=== PATIENT | female | born 1985 | race African-American/Black ===

== ENCOUNTER 2016-04-16 18:27 | Emergency (ER) | payer OTHER ==
[2016-04-16 18:44] VITALS: BP 122/69
== END 2016-04-16 20:29 | disposition left against medical advice (07) ==
LOC: ED 18:27
DX: K08.89 Other specified disorders of teeth and supporting structures (principal)

== ENCOUNTER 2016-05-30 07:23 | Emergency (ER) | payer OTHER ==
[2016-05-30 08:21] LABS: Hematocrit 37 % (35-47); Hemoglobin 12.4 g/dl (12.0-16.0); Mean Corpuscular HGB Conc 33 g/dl (31-36); Mean Corpuscular Hemoglobin 29 pg (27-31); Mean Corpuscular Volume 87 fL (80-97); Mean Platelet Volume 11 um3 (7.4-10.4); Red Blood Count 4.29 10^6/ul (4.0-5.4); Red Cell Distribution Width 14 % (10.5-15); White Blood Count 6.3 10^3/ul (3.5-10.8)
[2016-05-30 08:25] LABS: Comments Flag Yes
[2016-05-30 08:26] LABS: Add Diff/Slide Review? Slide Review Added
[2016-05-30 08:34] LABS: Calcium 8.9 mg/dL (8.6-10.3); EGFR African American 139.6 (>60); EGFR Non-African American 108.5 (>60); Globulin 3.2 g/dL (2-4); Total Bilirubin 0.5 mg/dL (0.2-1.0); Total Protein 7.2 g/dL (6.4-8.9)
[2016-05-30 08:37] LABS: Urine Bacteria Absent (Absent); Urine Bilirubin Negative (Negative); Urine Glucose Negative (Negative); Urine Nitrite Negative (Negative)
[2016-05-30 09:11] LABS: Potassium 4.5 mmol/L (3.5-5.0)
--- NOTE | 2016-05-30 11:43 | RAD ---
Indication: , vaginal bleeding. COMPARISON: There are no prior studies available for comparison. TECHNIQUE: Multiple real-time transvaginal images of the pelvis were obtained. FINDINGS: There is a small saclike structure present within the uterine cavity in the fundus of the uterus. There is a yolk sac present. No pole or heartbeat is seen. The mean sac diameter measures 0.5 cm corresponding to an estimated gestational age of 5 weeks 0 days. There is a relatively large fluid collection adjacent to the sac measuring 2.0 x 1.2 x 2.1 cm consistent with a subchorionic hemorrhage. There is a hypoechoic mass present in the fundal portion of the uterus toward the left side measuring 1.5 x 1.2 x 1.5 cm most consistent with a leiomyoma. The right ovary measured 3.1 x 3.0 x 2.4 cm. The left ovary measured 3.9 x 3.7 x 2.5 cm. There is vascular flow within both ovaries. There is a slightly complex cyst present within the left ovary measured 2.2 x 1.7 x 1.9 cm. No free intraperitoneal fluid is seen. IMPRESSION: 1. EARLY INTRAUTERINE WITH A RELATIVELY LARGE SUBCHORIONIC HEMATOMA. RECOMMEND A FOLLOW-UP PELVIC ULTRASOUND IN 1-2 WEEKS TIME TO ASSESS FOR VIABILITY. 2. SMALL UTERINE LEIOMYOMA. 3. SMALL COMPLEX LEFT OVARIAN CYST.
[2016-05-30 12:15] VITALS: BP 104/60
--- NOTE | 2016-05-30 13:55 | ED ---
Stevie, DoctorLisbeth, scribed for Eliezer Pollard MD on 05/30/16 at 0744 . GI/ HPI - HPI Summary HPI Summary: 30 year old female arrived to [facility] c/o vaginal bleeding and abdominal cramping beginning yesterday. She is 6 weeks as confirmed by a qualitative home test, and had her LMP on 04/22. She reports that the blood was a light pink color and similar to spotting; denies any painful/frequent urination. She denies any other medical problems. - History of Current Complaint Chief Complaint: EDVaginalBleeding Stated Complaint: 6WKS PREG/VAG BLEEDING Hx Obtained From: Patient Onset/Duration: Started Days Ago - last night Timing: Intermittent Severity: Moderate Current Severity: Moderate Vaginal Bleeding Description: Bright Red - "light pink" Pain Intensity: 7 Location of Pain: Diffuse - abdominal cramping Pain Characteristics: Cramping Associated Signs and Symptoms: Negative: Hematuria, Dysuria - Allergy/Home Medications Allergies/Adverse Reactions: Allergies Allergy/AdvReac Type Severity Reaction Status Date / Time No Known Allergies Allergy Verified 04/16/16 18:45 PMH/Surg Hx/FS Hx/Imm Hx Previously Healthy: Yes Infectious Disease History: No Infectious Disease History: Denies: Traveled Outside the [place] in Last 30 Days - Family History Known Family History: Positive: Hypertension Negative: Cardiac Disease - Social History Alcohol Use: None Substance Use Type: Reports: None Smoking Status (MU): Never Smoked Tobacco Review of Systems Positive: Abdominal Pain - cramping. Negative: Vomiting, Diarrhea, Nausea Positive: other - vaginal bleeding. Negative: hematuria, pain, urgency All Other Systems Reviewed And Are Negative: Yes Physical Exam Triage Information Reviewed: Yes Vital Signs On Initial Exam: Initial Vitals Temp Pulse Resp BP Pulse Ox 98.6 F 65 18 100/51 100 05/30/16 07:31 05/30/16 07:31 05/30/16 07:31 05/30/16 07:31 05/30/16 07:31 Vital Signs Reviewed: Yes Appearance: Positive: Well-Appearing, No Pain Distress Skin: Positive: Warm, Skin Color Reflects Adequate Perfusion, Dry Head/Face: Positive: Normal Head/Face Inspection Eyes: Positive: Normal ENT: Positive: Normal ENT inspection Neck: Positive: Supple, Nontender Respiratory/Lung Sounds: Positive: Clear to Auscultation, Breath Sounds Present Cardiovascular: Positive: RRR Abdomen Description: Positive: Nontender, Soft Bowel Sounds: Positive: Present Musculoskeletal: Positive: Normal Neurological: Positive: Normal Psychiatric: Positive: Normal, Affect/Mood Appropriate Diagnostics - Vital Signs Vital Signs Temp Pulse Resp BP Pulse Ox 05/30/16 07:31 98.6 F 65 18 100/51 100 - Laboratory Lab Results: Quantitative HC.0 mIU/mL Result Diagrams: 05/30/16 08:00 05/30/16 08:00 Lab Statement: Any lab studies that have been ordered have been reviewed, and results considered in the medical decision making process. - Ultrasound No standard instances Ultrasound Interpretation Completed By: Radiologist - IMPRESSION: 1. EARLY INTRAUTERINE WITH A RELATIVELY LARGE SUBCHORIONIC HEMATOMA. RECOMMEND A FOLLOW-UP PELVIC ULTRASOUND IN 1-2 WEEKS TIME TO ASSESS FOR VIABILITY. 2. SMALL UTERINE LEIOMYOMA. 3. SMALL COMPLEX LEFT OVARIAN CYST. GIGU Course/Dx - Course Course Of Treatment: Taj Parra presented with some mild vaginal bleeding in the context of a positive OTC test about 6 weeks after her LMP. She was stable with only mild cramping and her HCG was over 4000 so an U/s was obtained which showed an IUP with a subchorionic hemorrhage. - Diagnoses Provider Diagnoses: First trimester bleeding, Subchorionic hemorrhage Discharge - Discharge Plan Condition: Stable Disposition: HOME Patient Education Materials: First Trimester Vaginal Bleed (ED) Referrals: Arsen Aquino MD [Medical Doctor] - Additional Instructions: Follow up with Dr. Aquino ([employer]) on 06/02/2016. What is a subchorionic bleed? Subchorionic bleeding (also known as a subchorionic hematoma) is the accumulation of blood within the folds of the chorion (the outer membrane , next to the placenta) or between the uterus and the placenta itself. It can cause light to heavy spotting, but it may not. Most subchorionic bleeds resolve on their own, and women go on to have perfectly healthy pregnancies. * How common is it? * Around 1 percent of all pregnancies have a subchorionic bleed. Of those women who experience first-trimester bleeding, 20 percent are diagnosed with a subchorionic bleed as the cause of the spotting. * What are the symptoms? * Subchorionic hematomas can be hard to corn picker because they dont always result in noticeable symptoms, especially when theyre small. Spotting or bleeding may be a sign, often beginning in the first trimester. But many subchorionic bleeds are detected during a routine ultrasound, without there being any noticeable signs or symptoms. * Potential risks * Remember: The vast majority of subchorionic hematomas dissolve on their own. However in rare cases, a subchorionic bleed can cause the placenta to separate from the uterine wall, and it may be linked to an elevated risk of miscarriage and labor which is why it's so important to let your doctor know right away if you ever experience vaginal bleeding during . * Should you be concerned? * It's normal and healthy to worry when you see blood during . But know that subchorionic bleeding usually ends in a healthy and since you'll be checked with ultrasounds until the hematoma corrects itself, you'll get reassurrance each time you see your baby's heartbeat. * How it's diagnosed and treated * If you notice vaginal bleeding during any point of your , call your practitioner. He or she will order an ultrasound; depending on how large the subchorionic hematoma is and where its located, as well as on your practitioner s preferences, you may be put on activity restriction (also known as bed rest) and asked to avoid sexual intercourse until the hematoma dissolves and disappears. * Updated 12/25/14 The documentation as recorded by the Doctor hart Tahera accurately reflects the service I personally performed and the decisions made by me, Eliezer Pollard MD.
== END 2016-05-30 12:45 | disposition home or self-care (01) ==
LOC: ED 07:23
DX: O20.8 Other hemorrhage in early pregnancy (principal); Z3A.01 Less than 8 weeks gestation of pregnancy; O34.11 Maternal care for benign tumor of corpus uteri, first trimester; O34.81 Maternal care for other abnormalities of pelvic organs, first trimester; N83.202 Unspecified ovarian cyst, left side
CPT/HCPCS: 36415; 76817; 80053; 81003; 81015; 84702; 85025; 86850; 86900; 86901; 87086; 99282

== ENCOUNTER 2016-05-30 15:46 | Emergency (ER) | payer OTHER ==
[2016-05-30 17:44] VITALS: BP 124/96
--- NOTE | 2016-06-20 15:33 | ED ---
GI/ HPI - HPI Summary HPI Summary: BIBA. Pt seen earlier today w/ vaginal bleeding during . U/S revealed subchorionic hemorrhage and pt was provided w/ education about this condition, including f/u instructions. Her vaginal bleeding and abdominal cramping began yesterday. She is 6 weeks as confirmed by a qualitative home test, and had her LMP on 04/22. She reports that the blood she was passing earlier today was a light pink color and similar to spotting - now she is having more active bleeding w/ cramping, like a regular period. Denies fever, chills, N/V/D, dysuria, back pain, chest pain, SOB. She denies any other medical problems. She is upset she may be miscarrying. - History of Current Complaint Chief Complaint: EDOBProblems Time Seen by Provider: 05/30/16 15:54 Stated Complaint: VAG BLEEDING Hx Obtained From: Patient, Family/Street Inspector - family Pain Intensity: 0 - Allergy/Home Medications Allergies/Adverse Reactions: Allergies Allergy/AdvReac Type Severity Reaction Status Date / Time No Known Allergies Allergy Verified 06/07/16 16:50 PMH/Surg Hx/FS Hx/Imm Hx Previously Healthy: Yes Endocrine/Hematology History: Denies: Hx Anticoagulant Therapy, Hx Blood Disorders, Hx Unexplained Bleeding , Hx Coagulopothy Infectious Disease History: No Infectious Disease History: Denies: Traveled Outside the [place] in Last 30 Days - Family History Known Family History: Positive: Hypertension Negative: Cardiac Disease - Social History Lives: With Family Alcohol Use: None Hx Substance Use: No Substance Use Type: Reports: None Hx Tobacco Use: No Smoking Status (MU): Never Smoked Tobacco Review of Systems Constitutional: Negative Negative: Blurred Vision Negative: Chest Pain Negative: Shortness Of Breath Gastrointestinal: Other - see HPI Positive: see HPI Musculoskeletal: Negative Skin: Negative Neurological: Negative Positive: Anxious All Other Systems Reviewed And Are Negative: Yes Physical Exam Triage Information Reviewed: Yes Vital Signs On Initial Exam: Initial Vitals Temp Pulse Resp BP Pulse Ox 100.2 F 66 18 117/62 100 05/30/16 15:57 05/30/16 15:57 05/30/16 15:57 05/30/16 15:57 05/30/16 15:57 Vital Signs Reviewed: Yes Appearance: Positive: Well-Appearing - emotionally upset, tearful - no signs of physical pain/distress, No Pain Distress, Well-Nourished Skin: Positive: Warm, Dry - no ecchymosis Head/Face: Positive: Normal Head/Face Inspection Eyes: Positive: Normal, EOMI, Conjunctiva Clear ENT: Positive: Hearing grossly normal, Pharynx normal - mucosa moist Neck: Positive: Supple Respiratory/Lung Sounds: Positive: Clear to Auscultation, Breath Sounds Present Cardiovascular: Positive: Normal, RRR, Pulses are Symmetrical in both Upper and Lower Extremities, S1, S2. Negative: Murmur, Rub, Leg Edema Left, Leg Edema Right Abdomen Description: Positive: Nontender, Soft. Negative: CVA Tenderness (R), CVA Tenderness (L) Bowel Sounds: Positive: Present Pelvic Exam: Positive: other - vaginal canal w/ scant dark red blood Musculoskeletal: Positive: Normal, Strength/ROM Intact Neurological: Positive: Normal, Sensory/Motor Intact, Alert, Oriented to Person Place, Time, CN Intact II-III Psychiatric: Positive: Other - tearful Diagnostics - Vital Signs Vital Signs Temp Pulse Resp BP Pulse Ox 05/30/16 17:42 99.6 F 67 20 124/96 05/30/16 15:57 100.2 F 66 18 117/62 100 - Laboratory Lab Statement: Any lab studies that have been ordered have been reviewed, and results considered in the medical decision making process. GIGU Course/Dx - Course Course Of Treatment: Based on HPI and PE from now and earlier today, opted to avoid additional testing given the fact this is most likely a threatened w/ more steady vaginal bleeding in the face of a large subchorionic hemorrhage on U/S today. No s/sx of infection, uncontrolled pain, etc. Provided education and supportive care during sx. Advised f/u as directed by Dr. Pollard earlier in the day - Dr. Pollard has also assessed her and no rhogam necessary. Reviewed danger s/sx of when to return to ED. Pt and family voice understanding. - Diagnoses Provider Diagnoses: Threatened in first trimester, Subchorionic hematoma in first trimester Discharge - Discharge Plan Condition: Stable Disposition: HOME Patient Education Materials: Subchorionic Hemorrhage (ED) Forms: *Work Release Referrals: No Primary Care Phys,NOPCP [Primary Care Provider] - Additional Instructions: You were diagnosed with a subchorionic hemorrhage earlier today. Given your current symptoms, you may be having a miscarriage. It is advised that you rest and repeat your test in 48 hours (Thursday). A lab order was provided for you today - bring this to the lab on Thursday - the lab is in the basement. Your results will be called back to you later in the day. If you do not hear back by Thursday, call for results. Follow-up with OBGYN as directed earlier today - call Thursday to schedule an appointment. *If you develop a hard abdomen, fever, vomiting, back pain, heavy bleeding ( saturating a pad every hour for 12 or more consecutive hours) return to ED.
== END 2016-05-30 17:42 | disposition home or self-care (01) ==
LOC: ED 15:46
DX: O20.0 Threatened abortion (principal); Z3A.01 Less than 8 weeks gestation of pregnancy; N93.9 Abnormal uterine and vaginal bleeding, unspecified
CPT/HCPCS: 99282

== ENCOUNTER 2016-06-02 11:00 | Emergency (ER) | payer OTHER ==
[2016-06-02 11:13] VITALS: BP 118/53
--- NOTE | 2016-06-02 14:18 | RAD ---
Indication: , vaginal bleeding. COMPARISON: Comparison is made with a prior pelvic ultrasound from May 30, 2016. TECHNIQUE: Multiple real-time transvaginal images of the pelvis were obtained. FINDINGS: There is a sac in the fundal portion of the uterine cavity. No Pole or heartbeat is visualized although a yolk sac is seen. The mean sac diameter measures 0.66 cm corresponding to an estimated gestational age of 5 weeks 2 days. In addition there is a subchorionic collection measuring 1.3 x 0.8 x 1.0 cm in size. There is a small fibroid present within the fundal portion of the uterus toward the left side measuring 1.2 x 1.2 x 1.6 cm. The right ovary measured 3.3 x 2.0 x 1.8 cm. The left ovary measured 3.6 x 2.4 x 2.4 cm. There is vascular flow within both ovaries. There is a complex left ovarian cyst measuring 1.5 x 1.2 x 1.7 cm. No free intraperitoneal fluid is seen. IMPRESSION: 1. EARLY INTRAUTERINE WITH A RELATIVELY LARGE SUBCHORIONIC HEMATOMA, UNCHANGED. RECOMMEND A FOLLOW-UP PELVIC ULTRASOUND IN 1-2 WEEKS TIME TO ASSESS FOR VIABILITY. 2. SMALL COMPLEX LEFT OVARIAN CYST. 3. SMALL UTERINE LEIOMYOMA.
[2016-06-02 19:03] LABS: Hematocrit 39 % (35-47); Hemoglobin 12.7 g/dl (12.0-16.0); Mean Corpuscular HGB Conc 33 g/dl (31-36); Mean Corpuscular Hemoglobin 28 pg (27-31); Mean Corpuscular Volume 87 fL (80-97); Mean Platelet Volume 11 um3 (7.4-10.4); Red Blood Count 4.48 10^6/ul (4.0-5.4); Red Cell Distribution Width 14 % (10.5-15); White Blood Count 7.5 10^3/ul (3.5-10.8)
[2016-06-02 19:04] LABS: Add Diff/Slide Review? Slide Review Added; Comments Flag Yes
--- NOTE | 2016-06-22 20:44 | UC ---
jonathan Hubbard Timothy, scribed for Tiffanie Gould DO on 06/02/16 at 1234 . Complaint Female HPI - HPI Summary HPI Summary: Taj Parra is a 30 yo female presenting to [facility] with vaginal bleeding, requiring a pad. She has used 4-5 pantyliners per day in the past 2 days. She has had abd pain and cramping since 05/30/16. She is not in any pain right now. She is 6 weeks with a positive test, her LNMP was 04/22/16. She appeared to [facility] on 05/30/16, and they told her that she was bleeding from the placenta. She appeared for blood work yesterday, and was told that she was not miscarrying. She states she returned home and the bleeding increased. She states the amount of bleeding increases with movement. She states she had some dizziness last night before bed. She denies any other Sx. . Pt and family state that they are here for a sonnogram, as [facility] was unable to schedule one for them until next week. She denies any pertinent MHx. - History Of Current Complaint Chief Complaint: UCGU Stated Complaint: BLEEDING 6 WEEKS Time Seen by Provider: 06/02/16 12:26 Hx Obtained From: Patient Hx Last Menstrual Period: 04/22/16 ?: Yes Onset/Duration: Sudden Onset, Lasting Hours, Still Present Timing: Constant, Lasting Hours Severity Initially: Moderate Severity Currently: Moderate Pain Intensity: 0 Pain Scale Used: 0-10 Numeric Character: Cramping Aggravating Factor(s): Movement Alleviating Factor(s): Nothing Associated Signs And Symptoms: Positive: Vaginal Bleeding/Discharge - Allergies/Home Medications Allergies/Adverse Reactions: Allergies Allergy/AdvReac Type Severity Reaction Status Date / Time No Known Allergies Allergy Verified 06/07/16 16:50 Home Medications: Home Medications NK [No Home Medications Reported] 06/02/16 [History Confirmed 06/07/16] PMH/Surg Hx/FS Hx/Imm Hx Previously Healthy: Yes Cardiovascular History Of: Denies: Cardiac Disorders - Surgical History Surgical History: None - Family History Known Family History: Positive: Hypertension Negative: Cardiac Disease, Diabetes - Social History Occupation: Employed Full-time Lives: With Family Alcohol Use: None Substance Use Type: None Smoking Status (MU): Never Smoked Tobacco Review of Systems Constitutional: Negative Skin: Negative Eyes: Negative ENT: Negative Respiratory: Negative Cardiovascular: Negative Gastrointestinal: Abdominal Pain - crampy Genitourinary: Other - vaginal bleeding Motor: Negative Neurovascular: Negative Musculoskeletal: Negative Neurological: Other - dizziness Psychological: Negative All Other Systems Reviewed And Are Negative: Yes Physical Exam Triage Information Reviewed: Yes Appearance: Well-Appearing, No Pain Distress, Well-Nourished Vital Signs: Initial Vital Signs Temp 99.2 F 06/02/16 11:10 Pulse 63 06/02/16 11:10 Resp 18 06/02/16 11:10 BP 118/53 06/02/16 11:10 Pulse Ox 100 06/02/16 11:10 Vital Signs Reviewed: Yes Eyes: Positive: Conjunctiva Clear. Negative: Discharge ENT: Positive: Hearing grossly normal. Negative: Muffled/hoarse voice Neck: Positive: Supple, Nontender Respiratory: Positive: Lungs clear, Normal breath sounds, No respiratory distress, No accessory muscle use Cardiovascular: Positive: RRR, No Murmur Abdomen Description: Positive: Nontender, Soft. Negative: CVA Tenderness (R), CVA Tenderness (L), Distended, Guarding Bowel Sounds: Positive: Present Musculoskeletal Exam: Normal Neurological: Positive: Alert, Muscle Tone Normal Psychological Exam: Normal Psychological: Positive: Age Appropriate Behavior Skin Exam: Normal Diagnostics - Radiology Transvaginal US Xray Interpretation: Positive (See Comments) - IMPRESSION: 1. EARLY INTRAUTERINE WITH A RELATIVELY LARGE SUBCHORIONIC HEMATOMA, UNCHANGED. RECOMMEND A FOLLOW-UP PELVIC ULTRASOUND IN 1-2 WEEKS TIME TO ASSESS FOR VIABILITY. 2. SMALL COMPLEX LEFT OVARIAN CYST. 3. SMALL UTERINE LEIOMYOMA. Radiology Interpretation Completed By: Radiologist Re-Evaluation - Re-Evaluation First Eval Re-Evaluation Time: 13:07 Change: Unchanged Comment: Pt was informed that US is available and she will be taken to imaging by wheelchair Second Eval Re-Evaluation Time: 14:22 Change: Unchanged Comment: Pelvic exam was performed with Pt consent: Os remains closed Third Eval Re-Evaluation Time: 14:44 Change: Unchanged Comment: Pt was informed of results of imaging study and consult with Dr. Orr. She was recommended to present to [facility] for further blood work and care surrounding her dizziness, but will leave [facility] AMA. Fourth Eval Re-Evaluation Time: 15:04 Change: Unchanged Comment: Pt was given the report from her imaging studies Complaint Female Dx - Course Course Of Treatment: Taj Parra is a 30 yo female presenting to [facility] with vaginal bleeding 6 weeks . After clinical examination and transvaginal US (see documentation), she was recommended to present to [facility], but will leave [facility] AMA. - Differential Dx/Diagnosis Differential Diagnosis/HQI/PQRI: , Urinary Tract Infection, Other - 1st trimester bleeding, miscarriage Provider Diagnoses: ovarian cyst, 1st timester bleeding, subchorionic hematoma, leiomyoma - Physician Notifications Discussed Patient Care With: 1304 - Celine (Ultrasound) - Requested US for Pt. 1434 - Dr. Orr ([facility]IE[facility] DISPATCHER) - Discussed Pt condition, recommends follow up at appointment at 0930 tomorrow Discharge - Discharge Plan Condition: Stable Disposition: AGAINST MEDICAL ADVICE Discharge Disposition Comment: Pt does not wish to present to [facility] as recommended Patient Education Materials: First Trimester Vaginal Bleed (ED) Referrals: [facility] [Provider Group] - 1 Day (FOLLOW UP TOMORROW MORNING AT 9:30AM WITH DR BLOUNT) Additional Instructions: YOU ARE LEAVING AGAINST MEDICAL ADVISE. WE HAVE RECOMMENDED TRANSFER TO THE ED FOR STAT BLOOD WORK TO MAKE SURE THAT YOU HAVE NOT LOST TOO MUCH BLOOD. YOU HAVE REFUSED. YOUR RISKS INCLUDE DAMAGE TO THE HEART, CARDIAC ARRYTHMIA, CARDIAC ARREST, SYNCOPE, RESPIRATORY DISTRESS AND . IF YOU CHANGE YOUR MIND, YOU CAN STILL GO TO THE ED AT ANY TIME. Please follow up with the [facility] DISPATCHER referral provided regarding your visit to urgent care today. You have an 0930 appointment scheduled with [facility] tomorrow morning. Return to urgent care or the emergency department with any new or recurring symptoms. The documentation as recorded by the jonathan hart Timothy accurately reflects the service I personally performed and the decisions made by me, Tiffanie Gould DO.
== END 2016-06-02 15:20 | disposition left against medical advice (07) ==
LOC: UCEAST 11:00
DX: O20.8 Other hemorrhage in early pregnancy (principal); O34.11 Maternal care for benign tumor of corpus uteri, first trimester; Z3A.01 Less than 8 weeks gestation of pregnancy; N83.292 Other ovarian cyst, left side
CPT/HCPCS: 36415; 76817; 81002; 81025; 85025; 86850; 86900; 86901; 99212; G0463

== ENCOUNTER 2016-06-07 16:47 | Emergency (ER) | payer OTHER ==
[2016-06-07 16:53] VITALS: BP 133/79
[2016-06-07 17:49] LABS: Urine Bacteria Absent (Absent); Urine Bilirubin Negative (Negative); Urine Glucose Negative (Negative); Urine Nitrite Negative (Negative)
[2016-06-07 18:17] LABS: Hematocrit 36 % (35-47); Hemoglobin 11.9 g/dl (12.0-16.0); Mean Corpuscular HGB Conc 33 g/dl (31-36); Mean Corpuscular Hemoglobin 29 pg (27-31); Mean Corpuscular Volume 87 fL (80-97); Mean Platelet Volume 10 um3 (7.4-10.4); Red Blood Count 4.13 10^6/ul (4.0-5.4); Red Cell Distribution Width 14 % (10.5-15); White Blood Count 7.7 10^3/ul (3.5-10.8)
[2016-06-07 18:30] LABS: BUN/Creatinine Ratio 18.8 (8-20); C Reactive Protein 6.71 mg/L (< 5.00); Calcium 9.3 mg/dL (8.6-10.3); EGFR African American 142.1 (>60); EGFR Non-African American 110.5 (>60); Globulin 3.2 g/dL (2-4); Potassium 3.9 mmol/L (3.5-5.0); Total Bilirubin 0.4 mg/dL (0.2-1.0); Total Protein 7.2 g/dL (6.4-8.9)
--- NOTE | 2016-06-07 19:49 | RAD ---
Indication: 6 weeks 1 day gestation based on May 30, 2016 ultrasound. Vaginal bleeding. Comparison: June 02, 2016 Technique: Transvaginal obstetrical ultrasound. Report: Based on correlation with the previous ultrasound the solitary intrauterine gestational sac is partially decompressed compared with the prior exam. The gestational sac measures 0.9 cm maximum dimension. Decrease in diameter of the yolk sac. No pole visualized. 1.3 x 1.1 x 1.1 cm posterior uterine myometrial fibroid without significant impression on the endometrium. Negative for free pelvic fluid. Unremarkable 2.3 x 1.3 x 2.4 cm RIGHT ovary with documented vascular flow is unremarkable.. 2.5 x 2.2 x 2.4 cm LEFT ovary is remarkable for a unilocular 1.6 x 1.3 x 1.3 cm cyst without complex features which may represent a follicular cyst or corpus luteum. Normal vascular flow to the surrounding LEFT ovary documented. No visualized extra ovarian adnexal region lesions evident. IMPRESSION: Based on interval decrease in volume compared with the June 02, 2016 exam and absence of a visualized pole the solitary IUP appears nonviable. Correlate with clinical data.
--- NOTE | 2016-06-07 20:39 | ED ---
Jennifer Hubbard Matthew, scribed for Ervin Moreno on 06/07/16 at 2032 . Progress - Progress Note Progress Note: The patient is a sign out from Dr. Ortiz. 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 She is in stable condition. - Results/Orders Results/Orders: Transvaginal US IMPRESSION: Based on interval decrease in volume compared with the June 02, 2016 exam and absence of a visualized pole the solitary IUP appears nonviable. Correlate with clinical data. Course/Dx - Diagnoses Provider Diagnoses: Threatened in early The documentation as recorded by the Jennifer hart Matthew accurately reflects the service I personally performed and the decisions made by , Ervin Moreno.
--- NOTE | 2016-06-08 07:31 | ED ---
Christophe Hubbard Rebecca, scribed for Maury Ortiz MD on 06/07/16 at 1713 . - HPI Summary HPI Summary: Pt is a 30 y/o F who presents to ED c/o vaginal bleeding. Bleeding began gradually 9 days ago as spotting and has been constant and worsening. Associated pain diffuse, characterized as cramping and currently ranked 10/10. Sx aggravated by exertion, alleviated by nothing. Denies any other sx including fever. Pt was evaluated by the ED on 05/30 and [facility] on 06/02 for similar symptoms. Pt is 6 weeks . A1. LNMP April 22. - History of Current Complaint Chief Complaint: EDVaginalBleeding Stated Complaint: VAG BLEEDING-6WKS PREG Time Seen by Provider: 06/07/16 17:08 Hx Obtained From: Patient Chief Complaint: Vaginal Bleeding Onset/Duration: Started Days Ago - 9 days ago, Still Present Timing: Constant Severity: Moderate Current Severity: Severe Pain Intensity: 10 Location of Pain: Diffuse Character: Cramping Aggravating Factors: Other: - Exertion Alleviating Factors: Nothing Associated Signs and Symptoms: Positive: Negative - Assessment Hx Now: Yes - Allergies/Home Medications Allergies/Adverse Reactions: Allergies Allergy/AdvReac Type Severity Reaction Status Date / Time No Known Allergies Allergy Verified 06/07/16 16:50 PMH/Surg Hx/FS Hx/Imm Hx Previously Healthy: Yes Endocrine/Hematology History: Denies: Hx Diabetes Cardiovascular History: Denies: Hx Hypercholesterolemia, Hx Hypertension Infectious Disease History: No Infectious Disease History: Denies: Traveled Outside the [place] in Last 30 Days - Family History Known Family History: Positive: Hypertension Negative: Cardiac Disease - Social History Alcohol Use: None Substance Use Type: Reports: None Smoking Status (MU): Never Smoked Tobacco Review of Systems Negative: Fever Positive: Abdominal Pain - secondary to bleeding (01/06) Positive: other - Vaginal bleeding All Other Systems Reviewed And Are Negative: Yes Physical Exam - Summary Physical Exam Summary: VENEREAL DISEASE CONTROL 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 External genitalia: within normal limits. No rashes, lesions or ecchymosis. Speculum exam: vaginal velasquze with no lesions, masses, or rashes. Positive old blood and blood cloths in the vault. Cervix normal. No CMTs. No adnexal masses. - Physical Exam Triage Information Reviewed: Yes Vital Signs Reviewed: Yes Appearance: Positive: Well-Appearing Skin: Positive: Warm, Skin Color Reflects Adequate Perfusion, Dry Eyes: Positive: EOMI, CARLO ENT: Positive: Normal ENT inspection Neck: Positive: Supple, Nontender Respiratory/Lung Sounds: Positive: Clear to Auscultation, Breath Sounds Present Cardiovascular: Positive: RRR, Pulses are Symmetrical in both Upper and Lower Extremities Musculoskeletal: Positive: Normal, Strength/ROM Intact Neurological: Positive: Normal, Sensory/Motor Intact, Alert, Oriented to Person Place, Time Psychiatric: Positive: Normal, Affect/Mood Appropriate Diagnostics - Vital Signs Vital Signs Temp Pulse Resp BP Pulse Ox 06/07/16 16:50 98.7 F 77 16 133/79 100 - Laboratory Result Diagrams: 06/07/16 18:04 06/07/16 18:04 Lab Statement: Any lab studies that have been ordered have been reviewed, and results considered in the medical decision making process. Course/Dx - Course Assessment/Plan: Pt is a 30 y/o F who presents to ED c/o vaginal bleeding. Bleeding began gradually 9 days ago as spotting and has been constant and worsening. Associated pain diffuse, characterized as cramping and currently ranked 10/10. Sx aggravated by exertion, alleviated by nothing. Denies any other sx including fever. Pt was evaluated by the ED on 05/30 and [facility] on 06/02 for similar symptoms. Pt is 6 weeks . A1. LNMP April 22. Patient awaiting for Pelvic U/S. She continues to be hemodynamically stable and she is A +Ox3. Patient will be signed out to Dr. Moreno for following uo od U/S results and further disposition and treatment. - Differential Diagnosis/HQI/PQRI: Incomplete , Missed , Spontaneous , Threatened , Subchorionic Hemorrhage, Vaginal Bleeding - Diagnoses Provider Diagnoses: Threatened in early Discharge - Discharge Plan Condition: Stable Disposition: HOME Patient Education Materials: Threatened Miscarriage (ED) Forms: *Work Release Referrals: Mook Nielson MD [Medical Doctor] - 06/09/16 Additional Instructions: Please follow-up with Dr. Chavez on Friday 06/09. Return to the ED if you began to have heavy bleeding again. The documentation as recorded by the scribe, DiFabio,Mackenzie accurately reflects the service I personally performed and the decisions made by me, Maury Ortiz MD.
== END 2016-06-07 21:05 | disposition home or self-care (01) ==
LOC: ED 16:47
DX: O20.0 Threatened abortion (principal); Z3A.01 Less than 8 weeks gestation of pregnancy; Z37.9 Outcome of delivery, unspecified
CPT/HCPCS: 36415; 76817; 80053; 81003; 81015; 84702; 85025; 86140; 86900; 86901; 99283

== ENCOUNTER 2016-06-08 17:09 | Emergency (ER) | payer OTHER ==
[2016-06-08] MEDS ORDERED: Acetaminophen TAB* 325 MG PO ONE (18:27)
[2016-06-08 19:26] VITALS: BP 107/55
--- NOTE | 2016-06-08 21:14 | ED ---
- HPI Summary HPI Summary: Patient with known IUP arrives to ED with vaginal bleeding x 8 days. She was seen at and sent to ED for transvaginal US. See below for her subsequent US. Patient has been told it is too early to determine viable fetus and should follow up. She arrives today with pain, bleeding and wanting to know whether in fact she is . Provider called to Dr. Nielson. Dr. Nielson willing to come speak with patient on findings. June 07: IMPRESSION: Based on interval decrease in volume compared with the June 02, 2016 exam and absence of a visualized pole the solitary IUP appears nonviable. Correlate with clinical data. June 02: FINDINGS: There is a sac in the fundal portion of the uterine cavity. No Pole or heartbeat is visualized although a yolk sac is seen. The mean sac diameter measures 0.66 cm corresponding to an estimated gestational age of 5 weeks 2 days. In addition there is a subchorionic collection measuring 1.3 x 0.8 x 1.0 cm in size. IMPRESSION: 1. EARLY INTRAUTERINE WITH A RELATIVELY LARGE SUBCHORIONIC HEMATOMA, UNCHANGED. RECOMMEND A FOLLOW-UP PELVIC ULTRASOUND IN 1-2 WEEKS TIME TO ASSESS FOR VIABILITY. 2. SMALL COMPLEX LEFT OVARIAN CYST. 3. SMALL UTERINE LEIOMYOMA. May 30: IMPRESSION: 1. EARLY INTRAUTERINE WITH A RELATIVELY LARGE SUBCHORIONIC HEMATOMA, UNCHANGED. RECOMMEND A FOLLOW-UP PELVIC ULTRASOUND IN 1-2 WEEKS TIME TO ASSESS FOR VIABILITY. 2. SMALL COMPLEX LEFT OVARIAN CYST. 3. SMALL UTERINE LEIOMYOMA. - History of Current Complaint Chief Complaint: EDVaginalBleeding Stated Complaint: VAG BLEEDING/POSS MISCARRIAGE Time Seen by Provider: 06/08/16 17:34 Hx Obtained From: Patient Chief Complaint: Concern for Embryonic Dem, Concern for Demise, Pain, Vaginal Bleeding Onset/Duration: Started Days Ago - 9 Timing: Intermittent Severity: Moderate Current Severity: Moderate Pain Intensity: 6 Location of Pain: Groin Character: Cramping Aggravating Factors: Nothing Associated Signs and Symptoms: Positive: Vaginal Bleeding or Discharge - Assessment Hx Now: Yes - Allergies/Home Medications Allergies/Adverse Reactions: Allergies Allergy/AdvReac Type Severity Reaction Status Date / Time No Known Allergies Allergy Verified 06/07/16 16:50 PMH/Surg Hx/FS Hx/Imm Hx Previously Healthy: Yes Endocrine/Hematology History: Denies: Hx Diabetes Cardiovascular History: Denies: Hx Hypercholesterolemia, Hx Hypertension Infectious Disease History: No Infectious Disease History: Denies: Traveled Outside the [place] in Last 30 Days - Family History Known Family History: Positive: Hypertension Negative: Cardiac Disease - Social History Occupation: Unemployed Lives: With Family Alcohol Use: None Hx Substance Use: No Substance Use Type: Reports: None Hx Tobacco Use: No Smoking Status (MU): Never Smoked Tobacco Review of Systems Constitutional: Negative Eyes: Negative Cardiovascular: Negative Respiratory: Negative Positive: Abdominal Pain Positive: no symptoms reported, see HPI Skin: Negative Neurological: Negative All Other Systems Reviewed And Are Negative: Yes Physical Exam - Physical Exam Triage Information Reviewed: Yes Vital Signs Reviewed: Yes Appearance: Positive: Well-Nourished, Pain Distress Skin: Positive: Warm, Skin Color Reflects Adequate Perfusion Eyes: Positive: CARLO, Conjunctiva Clear Neck: Positive: Nontender, No Lymphadenopathy Respiratory/Lung Sounds: Positive: Clear to Auscultation, Breath Sounds Present Cardiovascular: Positive: Normal Abdomen Description: Positive: Other: - tenderness suprapubically Bowel Sounds: Positive: Present Musculoskeletal: Positive: Normal Neurological: Positive: Sensory/Motor Intact Psychiatric: Positive: Normal AVPU Assessment: Alert Diagnostics - Vital Signs Vital Signs Temp Pulse Resp BP Pulse Ox 06/08/16 19:25 99.5 F 67 18 107/55 06/08/16 17:13 98.5 F 68 16 124/66 100 - Laboratory Lab Statement: Any lab studies that have been ordered have been reviewed, and results considered in the medical decision making process. Course/Dx - Course Course Of Treatment: Dr Nielson consulted and came to see patient. Patient made aware of results of US and is OK with discharge and follow up with Dr. Wheat office this week. Provider offered pain medication but patient stated tylenol would be enough. Patient DC home in stable condition. afebrile. chose not to redraw HCG level or US again based on previous findings. - Differential Diagnosis/HQI/PQRI: Spontaneous , Threatened , Endometriosis, /Embryonic Demise - Diagnoses Provider Diagnoses: Vaginal bleeding, Threatened Discharge - Discharge Plan Condition: Stable Disposition: HOME Patient Education Materials: Miscarriage (ED) Referrals: No Primary Care Phys,NOPCP [Primary Care Provider] - Additional Instructions: Follow up with Dr. Wheat on . Take Tylenol 650mg three times daily for any discomfort. If you develop fever, chills or sweats, return to ED immediately.
== END 2016-06-08 19:25 | disposition home or self-care (01) ==
LOC: ED 17:09
DX: O20.0 Threatened abortion (principal); Z3A.01 Less than 8 weeks gestation of pregnancy
CPT/HCPCS: 99281; A9270-GY

== ENCOUNTER 2016-08-21 22:16 | Emergency (ER) | payer OTHER ==
[2016-08-21 22:32] VITALS: BP 114/66
[2016-08-21] MEDS ORDERED: Ondansetron INJ* 2 MG/ML VIAL IV ONE (23:52)
[2016-08-21] MEDS ORDERED: NS 0.9% 1000 ML* 1,000 ML IV ONE (23:52)
[2016-08-21] MEDS ORDERED: Al Hydrox/Mg Hydrox/Simet LIQ* 30 ML UDC PO ONE (23:53)
[2016-08-21] MEDS ORDERED: Lidocaine 2% VISCOUS* 15 ML UDC PO ONE (23:53)
--- NOTE | 2016-08-22 00:26 | ED ---
Dizziness - HPI Summary HPI Summary: 30F presents with dizziness and n/v for 2 days. She states that it is a feeling of vertigo. She also admits to mild frontal headache. She denies any fever, sinus pressure, or ear pain. She states that certain foods make n/v worst and also has heart burn at same time. She denies any abdominal pain. She denies any diarrhea or constipation. She had a miscarriage a month ago and they have been trending her HCG. She does not know if dizziness is causing n/v or vice versa. - History Of Current Complaint Chief Complaint: EDNauseaVomitDiarrh Stated Complaint: VOMITING/DIZZY Time Seen by Provider: 08/21/16 23:35 - Allergies/Home Medications Allergies/Adverse Reactions: Allergies Allergy/AdvReac Type Severity Reaction Status Date / Time No Known Allergies Allergy Verified 08/21/16 22:32 PMH/Surg Hx/FS Hx/Imm Hx Endocrine/Hematology History: Denies: Hx Diabetes Cardiovascular History: Denies: Hx Hypercholesterolemia, Hx Hypertension Infectious Disease History: Denies: Traveled Outside the [place] in Last 30 Days - Family History Known Family History: Positive: Hypertension Negative: Cardiac Disease - Social History Alcohol Use: None Hx Substance Use: No Substance Use Type: Reports: None Hx Tobacco Use: No Smoking Status (MU): Never Smoked Tobacco Review of Systems Negative: Fever Negative: Chest Pain Negative: Shortness Of Breath Positive: Vomiting, Nausea. Negative: Abdominal Pain, Diarrhea Neurological: Other - vertigo Positive: Headache All Other Systems Reviewed And Are Negative: Yes Physical Exam Triage Information Reviewed: Yes Vital Signs On Initial Exam: Initial Vitals Temp Pulse Resp BP Pulse Ox 98.8 F 71 16 114/66 100 08/21/16 22:25 08/21/16 22:25 08/21/16 22:25 08/21/16 22:25 08/21/16 22:25 Vital Signs Reviewed: Yes Appearance: Positive: Well-Appearing Skin: Positive: Warm, Dry Head/Face: Positive: Normal Head/Face Inspection Eyes: Positive: Normal, EOMI, CARLO, Conjunctiva Clear ENT: Positive: Normal ENT inspection, Pharynx normal, TMs normal Respiratory/Lung Sounds: Positive: Clear to Auscultation, Breath Sounds Present Cardiovascular: Positive: Normal, RRR Abdomen Description: Positive: Nontender, Soft Bowel Sounds: Positive: Present Neurological: Positive: Sensory/Motor Intact, Alert, Oriented to Person Place, Time, CN Intact II-III - Darnell Coma Scale Best Eye Response: 4 - Spontaneous Best Motor Response: 6 - Obeys Commands Best Verbal Response: 5 - Oriented Diagnostics - Vital Signs Vital Signs Temp Pulse Resp BP Pulse Ox 08/21/16 22:25 98.8 F 71 16 114/66 100 - Laboratory Result Diagrams: 08/22/16 00:41 08/22/16 00:41 Lab Statement: Any lab studies that have been ordered have been reviewed, and results considered in the medical decision making process. Re-Evaluation - Re-Evaluation First Eval Re-Evaluation Time: 01:15 Change: Improved Comment: sleeping in room. nausea improved. no longer headache or vertigo will fluids Dizzy Course/Dx - Course Course Of Treatment: 30F presents with n/v and veritgo for past 2 days. states that when eats certain foods such as pizza gets heart burn and vomits afterwards. states feels dizzy at same time. denies any abdominal pain or fever. normal physical exam. labs normal. HCG trending downward. gave fluid and GI cocktail and zofran and felt better. suspect n/v due to acid reflux and dizzness due to dehyrdation. will treat with meclizine as will cover vertigo and n/v. patient understands and agrees with plan - Diagnoses Differential Diagnosis/HQI/PQRI: Hypovolemia, Metabolic Abnormality, Other - acid reflux Provider Diagnoses: Dizziness, Nausea and vomiting Discharge - Discharge Plan Condition: Good Disposition: HOME Prescriptions: Meclizine TAB* [Antivert 12.5 TAB*] 25 mg PO TID PRN #15 tab PRN Reason: Nausea Patient Education Materials: Acute Nausea and Vomiting (ED) Referrals: Erik Bee MD [Primary Care Provider] - Additional Instructions: Take meclizine three times a day as need for nausea or vertigo Take OTC antacid for heart burn Avoid acidic food Follow up with primary within 5 days Return to ED if develop any new or worsening symptoms
[2016-08-22 00:56] LABS: Hematocrit 37 % (35-47); Hemoglobin 12.5 g/dl (12.0-16.0); Mean Corpuscular HGB Conc 33 g/dl (31-36); Mean Corpuscular Hemoglobin 29 pg (27-31); Mean Corpuscular Volume 87 fL (80-97); Mean Platelet Volume 11 um3 (7.4-10.4); Red Blood Count 4.31 10^6/ul (4.0-5.4); Red Cell Distribution Width 13 % (10.5-15); White Blood Count 6.9 10^3/ul (3.5-10.8)
[2016-08-22 00:57] LABS: Add Diff/Slide Review? Slide Review Added; Comments Flag Yes
[2016-08-22 01:10] LABS: BUN/Creatinine Ratio 15.2 (8-20); Calcium 9.3 mg/dL (8.6-10.3); EGFR African American 111.4 (>60); EGFR Non-African American 86.7 (>60); Magnesium 1.8 mg/dL (1.9-2.7); Total Bilirubin 0.4 mg/dL (0.2-1.0)
[2016-08-22 01:13] LABS: Potassium 3.9 mmol/L (3.5-5.0)
[2016-08-22 01:18] LABS: Urine Bilirubin Negative (Negative); Urine Glucose Negative (Negative); Urine Nitrite Negative (Negative)
[2016-08-22 01:35] LABS: TSH (Thyroid Stimulating Horm) 1.15 mcIU/mL (0.34-5.60)
== END 2016-08-22 02:22 | disposition home or self-care (01) ==
LOC: ED 22:16
DX: R11.2 Nausea with vomiting, unspecified (principal); R42 Dizziness and giddiness
CPT/HCPCS: 36415; 80053; 81003; 83735; 84443; 84702; 85025; 96360; 96374; 99283; A9270-GY; J2405

== ENCOUNTER 2016-09-26 14:57 | Emergency (ER) | payer OTHER ==
[2016-09-26 15:02] VITALS: BP 101/59
--- NOTE | 2016-09-26 16:08 | ED ---
Throat Pain/Nasal Congestion - HPI Summary HPI Summary: 31F presents with right eye pain for a day. She states that her pain is in her eyelid. She has inject cornea. She admits to some discharge. She denies any foreign body. She states her vision is blurry and has light sensitivity. She denies any trauma to the area. She wears glasses but does not wear contacts. She denies any itch feeling. She denies any family history of glaucoma. - History of Current Complaint Chief Complaint: EDEyeProblem Time Seen by Provider: 09/26/16 15:08 - Allergies/Home Medications Allergies/Adverse Reactions: Allergies Allergy/AdvReac Type Severity Reaction Status Date / Time No Known Allergies Allergy Verified 08/21/16 22:32 PMH/Surg Hx/FS Hx/Imm Hx Endocrine/Hematology History: Denies: Hx Diabetes Cardiovascular History: Denies: Hx Hypercholesterolemia, Hx Hypertension Sensory History: Reports: Hx Contacts or Glasses - glasses Opthamlomology History: Reports: Hx Contacts or Glasses - glasses Infectious Disease History: No Infectious Disease History: Denies: Traveled Outside the [place] in Last 30 Days - Family History Known Family History: Positive: Hypertension Negative: Cardiac Disease - Social History Alcohol Use: None Hx Substance Use: No Substance Use Type: Reports: None Hx Tobacco Use: No Smoking Status (MU): Never Smoked Tobacco Review of Systems Negative: Fever Positive: Photophobia, Blurred Vision, Drainage, Erythema Negative: Sore Throat Negative: Chest Pain Negative: Shortness Of Breath All Other Systems Reviewed And Are Negative: Yes Physical Exam Triage Information Reviewed: Yes Vital Signs On Initial Exam: Initial Vitals Temp Pulse Resp BP Pulse Ox 98.7 F 81 16 101/59 99 09/26/16 14:58 09/26/16 14:58 09/26/16 14:58 09/26/16 14:58 09/26/16 14:58 Vital Signs Reviewed: Yes Appearance: Positive: Well-Appearing Skin: Positive: Warm, Dry Head/Face: Positive: Normal Head/Face Inspection Eyes: Positive: EOMI, CARLO, Conjunctiva Inflammed, Discharge - white discharge ENT: Positive: Normal ENT inspection, Pharynx normal, TMs normal Respiratory/Lung Sounds: Positive: Clear to Auscultation, Breath Sounds Present Cardiovascular: Positive: Normal, RRR Procedures - Eye Procedure Alcaine Drops Administered: Yes - no foreign body on fluorscein exam Diagnostics - Vital Signs Vital Signs Temp Pulse Resp BP Pulse Ox 09/26/16 15:11 98.7 F 81 16 101/59 99 09/26/16 14:58 98.7 F 81 16 101/59 99 - Laboratory Lab Statement: Any lab studies that have been ordered have been reviewed, and results considered in the medical decision making process. EENT Course/Dx - Course Course Of Treatment: 31F presents with right eye pain for a day. She states that her pain is in her eyelid. She has inject cornea. She admits to some discharge. She denies any foreign body. She states her vision is blurry and has light sensitivity. She denies any trauma to the area. She wears glasses but does not wear contacts. on exam some white discharge present, cornea injected. fluorscein exam normal. tonometry 20. will treat as conjuncitivitis but told patient that will need optho follow up as unsure if this is exactly what the patient has. patient understands and agrees with plan - Differential Diagnoses Differential Diagnoses: Conjunctivitis, Corneal Abrasion, Glaucoma - Diagnoses Provider Diagnoses: Conjunctivitis Discharge - Discharge Plan Condition: Good Disposition: HOME Patient Education Materials: Conjunctivitis (ED) Referrals: Erik Bee MD [Primary Care Provider] - Additional Instructions: Place 1 drop in eye four times a day for 5 days Wash hands after touching eye Follow up with ophthalmology as soon as possible Return to ED if develop any new or worsening symptoms
[2016-09-26] MEDS ORDERED: Polymyx/Trimethoprim OPTH* 10 ML BTL RIGHT EYE ONE (16:30)
== END 2016-09-26 16:18 | disposition home or self-care (01) ==
LOC: ED 14:57
DX: H10.9 Unspecified conjunctivitis (principal); H57.11 Ocular pain, right eye
CPT/HCPCS: 99282

== ENCOUNTER 2016-10-02 12:29 | Emergency (ER) | payer OTHER ==
--- NOTE | 2016-10-02 14:58 | ED ---
Throat Pain/Nasal Congestion - History of Current Complaint Chief Complaint: EDEyeProblem Time Seen by Provider: 10/02/16 12:56 - Allergies/Home Medications Allergies/Adverse Reactions: Allergies Allergy/AdvReac Type Severity Reaction Status Date / Time No Known Allergies Allergy Verified 08/21/16 22:32 PMH/Surg Hx/FS Hx/Imm Hx Endocrine/Hematology History: Denies: Hx Diabetes Cardiovascular History: Denies: Hx Hypercholesterolemia, Hx Hypertension Sensory History: Reports: Hx Contacts or Glasses - glasses Opthamlomology History: Reports: Hx Contacts or Glasses - glasses Infectious Disease History: No Infectious Disease History: Denies: Traveled Outside the [place] in Last 30 Days - Family History Known Family History: Positive: Hypertension Negative: Cardiac Disease - Social History Alcohol Use: None Hx Substance Use: No Substance Use Type: Reports: None Hx Tobacco Use: No Smoking Status (MU): Never Smoked Tobacco Physical Exam Vital Signs On Initial Exam: Initial Vitals Temp Pulse Resp BP Pulse Ox 98.3 F 110 18 132/82 100 10/02/16 12:31 10/02/16 12:31 10/02/16 12:31 10/02/16 12:31 10/02/16 12:31 Diagnostics - Vital Signs Vital Signs Temp Pulse Resp BP Pulse Ox 10/02/16 12:44 98.3 F 110 16 132/82 100 10/02/16 12:31 98.3 F 110 18 132/82 100 - Laboratory Lab Statement: Any lab studies that have been ordered have been reviewed, and results considered in the medical decision making process. EENT Course/Dx - Diagnoses Provider Diagnoses: Acute right eye pain - Provider Notifications Discussed Care Of Patient With: Dr Contreras Time Discussed With Above Provider: 15:15 Instructed by Provider To: Send To Office Now Discharge - Discharge Plan Condition: Stable Disposition: HOME Patient Education Materials: Eye Pain (ED) Referrals: Erik Bee MD [Primary Care Provider] - Carolyne Contreras MD [Medical Doctor] - Additional Instructions: [facility] for further evaluation.
[2016-10-02] MEDS ORDERED: Ibuprofen TAB* 600 MG PO ONE (15:28)
[2016-10-02 15:50] VITALS: BP 119/76
== END 2016-10-02 15:49 | disposition home or self-care (01) ==
LOC: ED 12:29
DX: H57.11 Ocular pain, right eye (principal)
CPT/HCPCS: 99282; A9270-GY

== ENCOUNTER 2016-12-02 21:35 | Emergency (ER) | payer OTHER ==
[2016-12-02] MEDS ORDERED: hydrOXYzine HCL TAB* 25 MG PO ONE (22:17)
[2016-12-02] MEDS ORDERED: predniSONE TAB* 20 MG PO ONE (22:17)
[2016-12-03 03:53] VITALS: BP 99/52
--- NOTE | 2016-12-03 06:58 | ED ---
Christophe Hubbard Rebecca, scribed for Ervin Moreno on 12/03/16 at 0654 . Allergic Reaction/Systemic - HPI Summary HPI Summary: Pt is a 31 y/o F who presents to ED c/o allergic reaction. At approximately 2100 the pt ate some mixed nuts at work and suddenly began experiencing diffuse pruritis, nasal congestion, sneezing and eye drainage. 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 Sx aggravated and alleviated by nothing. PMHx seasonal allergies and allergy to tropical fruit. No PMHx asthma. - History of Current Complaint Chief Complaint: EDAllergicReaction Time Seen by Provider: 12/02/16 22:00 Hx Obtained From: Patient Hx Last Menstrual Period: 04/22/16 Onset/Duration: Sudden Onset Severity Currently: None Pain Intensity: 0 Pain Scale Used: 0-10 Numeric Location: Diffuse Character: Pruritus Aggravating Factor(s): Nothing Alleviating Factor(s): Nothing Associated Signs And Symptoms: Positive: Other: - Nasal congestion, sneezing and eye drainage - Allergies/Home Medications Allergies/Adverse Reactions: Allergies Allergy/AdvReac Type Severity Reaction Status Date / Time tropical fruit Allergy Anaphylatic Uncoded 12/02/16 21:41 Shock PMH/Surg Hx/FS Hx/Imm Hx Endocrine/Hematology History: Denies: Hx Diabetes Cardiovascular History: Denies: Hx Hypercholesterolemia, Hx Hypertension Sensory History: Reports: Hx Contacts or Glasses - glasses Opthamlomology History: Reports: Hx Contacts or Glasses - glasses Infectious Disease History: No Infectious Disease History: Denies: Traveled Outside the [place] in Last 30 Days - Family History Known Family History: Positive: Hypertension Negative: Cardiac Disease - Social History Alcohol Use: Occasionally Hx Substance Use: No Substance Use Type: Reports: None Hx Tobacco Use: No Smoking Status (MU): Never Smoked Tobacco Review of Systems Positive: Drainage Positive: Other - Nasal congestion, sneezing Positive: Other - Diffuse pruritis All Other Systems Reviewed And Are Negative: Yes Physical Exam - Summary Physical Exam Summary: Appearance: Well appearing, no pain distress Skin: warm, dry, reflects adequate perfusion Head/face: normal Eyes: EOMI, CARLO ENT: normal Neck: supple, nontender Respiratory: CTA, breath sounds present Cardiovascular: RRR, pulses symmetrical Abdomen: nontender, soft Bowel: present Musculoskeletal: normal, strength/ROM intact Neuro: normal, sensory motor intact, A&Ox3 Triage Information Reviewed: Yes Vital Signs On Initial Exam: Initial Vitals Temp Pulse Resp BP Pulse Ox 98.2 F 72 20 141/97 100 12/02/16 21:38 12/02/16 21:38 12/02/16 21:38 12/02/16 21:38 12/02/16 21:38 Vital Signs Reviewed: Yes - [place] Coma Scale Coma Scale Total: 15 Diagnostics - Vital Signs Vital Signs Temp Pulse Resp BP Pulse Ox 12/02/16 23:18 98.1 F 74 16 99/52 12/02/16 22:30 70 18 102/68 100 12/02/16 21:51 62 20 110/74 100 12/02/16 21:41 98.2 F 70 20 141/97 100 12/02/16 21:38 98.2 F 72 20 141/97 100 - Laboratory Lab Statement: Any lab studies that have been ordered have been reviewed, and results considered in the medical decision making process. Re-Evaluation - Re-Evaluation First Eval Re-Evaluation Time: 23:08 Change: Improved Allergic Reaction Course/Dx - Course Assessment/Plan: Pt is a 31 y/o F who presents to ED c/o allergic reaction. At approximately 2100 the pt ate some mixed nuts at work and suddenly began experiencing diffuse pruritis, nasal congestion, sneezing and eye drainage. 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 Sx aggravated and alleviated by nothing. PMHx seasonal allergies and allergy to tropical fruit. No PMHx asthma. In the ED course, pt received Atarax and Deltasone which improved sx. Pt will be D/C to home with Dx of allergic reaction with Rx for Medrol and Atarax and a follow up with her PCP. She understands and agrees. Elevated BP noted and advised to f/u with PCP. - Diagnoses Provider Diagnoses: Allergic reaction Discharge - Discharge Plan Condition: Stable Disposition: HOME Prescriptions: Methylprednisolone [Medrol Dosepak 4 MG*] 0 mg PO .SEE BRIT INSTRUCTION #1 tab hydrOXYzine HCL TAB* [Atarax 25 MG TAB*] 25 mg PO QID PRN #20 tab MDD 3 PRN Reason: Itching Patient Education Materials: General Allergic Reaction (ED) Referrals: Erik Bee MD [Primary Care Provider] - 3 Days The documentation as recorded by the Christophe hart Rebecca accurately reflects the service I personally performed and the decisions made by me, Ervin Moreno.
== END 2016-12-02 23:18 | disposition home or self-care (01) ==
LOC: ED 21:35
DX: T78.40XA Allergy, unspecified, initial encounter (principal); X58.XXXA Exposure to other specified factors, initial encounter; R09.81 Nasal congestion
CPT/HCPCS: 99283; A9270-GY; J7512

== ENCOUNTER 2017-01-16 14:18 | Emergency (ER) | payer OTHER ==
[2017-01-16 14:31] VITALS: BP 109/54
--- NOTE | 2017-01-16 16:02 | ED ---
Throat Pain/Nasal Congestion - HPI Summary HPI Summary: 31 female presents to ED with complaints of having pink eye and a viral infection that has been ongoing for 2-3 days. Patient was seen at her PCP 2 days ago and stated if symptoms do not improve they would give her a script. Symptoms have since worsened. She states before coming to ED she was unable to get ahold of PCP however she finally did and they sent a script to pharmacy. Patient states her left eye has been itching and has a crusting discharge. Denies right eye symptoms. Patient also states she has had runny/congested nose , cough and scratchy throat. Has not taken any medication. Also states she feels her chest is congested and she is producing a lot of mucus. No other complaints. No medications. No PMHx. No changes to vision, or blurred vision. No FB and no pain. No photosensitivity. - History of Current Complaint Chief Complaint: EDGeneral Time Seen by Provider: 01/16/17 15:28 Hx Obtained From: Patient Onset/Duration: Sudden Onset, Lasting Days, Still Present, Worse Since Associated Signs And Symptoms: Positive: Dysphagia, Sinus Discomfort Cough: Nonproductive Related History: Seasonal Allergies - Epiglottits Risk Factors Epiglottis Risk Factors: Negative - Allergies/Home Medications Allergies/Adverse Reactions: Allergies Allergy/AdvReac Type Severity Reaction Status Date / Time tropical fruit Allergy Anaphylatic Uncoded 12/02/16 21:41 Shock PMH/Surg Hx/FS Hx/Imm Hx Endocrine/Hematology History: Denies: Hx Diabetes Cardiovascular History: Denies: Hx Hypercholesterolemia, Hx Hypertension Sensory History: Reports: Hx Contacts or Glasses - glasses Opthamlomology History: Reports: Hx Contacts or Glasses - glasses - Surgical History Surgery Procedure, Year, and Place: n/a - Immunization History Immunizations Up to Date: Yes Infectious Disease History: No Infectious Disease History: Denies: Traveled Outside the [place] in Last 30 Days - Family History Known Family History: Positive: Hypertension Negative: Cardiac Disease - Social History Alcohol Use: Occasionally Hx Substance Use: No Substance Use Type: Reports: None Hx Tobacco Use: No Smoking Status (MU): Never Smoked Tobacco Review of Systems Constitutional: Negative Positive: Drainage, Erythema, Other - pruritis Positive: Sore Throat, Nasal Discharge Cardiovascular: Negative Positive: Cough Gastrointestinal: Negative Musculoskeletal: Negative Skin: Negative Neurological: Negative All Other Systems Reviewed And Are Negative: Yes Physical Exam Triage Information Reviewed: Yes Vital Signs On Initial Exam: Initial Vitals Temp Pulse Resp BP Pulse Ox 98.3 F 67 20 109/54 100 01/16/17 14:28 01/16/17 14:28 01/16/17 14:28 01/16/17 14:28 01/16/17 14:28 Vital Signs Reviewed: Yes Appearance: Positive: Well-Appearing, No Pain Distress, Well-Nourished Skin: Positive: Warm, Skin Color Reflects Adequate Perfusion, Dry. Negative: Cold, Cyanosis @, Pale, Erythema @ Head/Face: Positive: Normal Head/Face Inspection Eyes: Positive: EOMI, CARLO, Conjunctiva Clear - right eye normal exam, Conjunctiva Inflammed - injected, left eye, Discharge - left eye, with yellow/ clear crusting, Other: - no FB or concern for corneal abrasion. no surrounding perioribital cellulitis or erythema noted ENT: Positive: Normal ENT inspection, Hearing grossly normal, Pharyngeal erythema, Nasal congestion, TMs normal. Negative: Nasal drainage, TM bulging, Tonsillar swelling, Tonsillar exudate, Muffled/hoarse voice Neck: Positive: Supple, Nontender, No Lymphadenopathy Respiratory/Lung Sounds: Positive: Clear to Auscultation, Breath Sounds Present. Negative: Rales, Rhonchi, Wheezes Cardiovascular: Positive: Normal, RRR, Pulses are Symmetrical in both Upper and Lower Extremities. Negative: Murmur, Rub Abdomen Description: Positive: Nontender, Soft Bowel Sounds: Positive: Present Musculoskeletal: Positive: Normal, Strength/ROM Intact Neurological: Positive: Normal, Sensory/Motor Intact, Alert, Oriented to Person Place, Time Diagnostics - Vital Signs Vital Signs Temp Pulse Resp BP Pulse Ox 01/16/17 14:28 98.3 F 67 20 109/54 100 - Laboratory Lab Statement: Any lab studies that have been ordered have been reviewed, and results considered in the medical decision making process. EENT Course/Dx - Course Course Of Treatment: scripts were sent to help with symptoms of URI/allergies. script for conjunctivitis already sent by primary care provider, per patient so will not resend another. warm compresses. wash hands frequently and avoid touching eyes. aware of worsening signs and symptoms to watch out of and return if occur. follow up pcp. fluids, rest. all questions answered. - Differential Diagnoses Differential Diagnoses: Conjunctivitis, Pharyngitis, Sinusitis, Tonsilitis, URI/ Bronchitis - Diagnoses Provider Diagnoses: Conjunctivitis, left eye, Upper respiratory infection Discharge - Discharge Plan Condition: Stable Disposition: HOME Prescriptions: Albuterol HFA INHALER* [Ventolin HFA Inhaler*] 1 puff INH Q4H PRN #1 mdi PRN Reason: Sob/Wheezing Fluticasone NASAL SPRAY 50MCG* [Flonase NASAL SPRAY 50MCG*] 2 spray BOTH NARES DAILY #1 btl Patient Education Materials: Upper Respiratory Infection (ED), Conjunctivitis ( ED) Referrals: Eirk Bee MD [Primary Care Provider] - Additional Instructions: Take prescribed medication as directed. Apply eye medication as previously prescribed/directed. Drink plenty of fluids, get plenty of rest. Recommend taking zyrtec and mucinex sold over the counter while symptoms persist. Follow up with PCP. IF symptoms worsen, do not improve, or new symptoms develop please seek medical attention promptly.
== END 2017-01-16 16:24 | disposition home or self-care (01) ==
LOC: ED 14:18
DX: H10.32 Unspecified acute conjunctivitis, left eye (principal); J06.9 Acute upper respiratory infection, unspecified

== ENCOUNTER 2017-06-05 00:14 | Emergency (ER) | payer OTHER ==
[2017-06-05] MEDS ORDERED: NS 0.9% 1000 ML* 1,000 ML IV ONE (03:44)
[2017-06-05] MEDS ORDERED: Ketorolac INJ* 30 MG/ML 1 ML VIAL IV PUSH ONE (03:45)
[2017-06-05 04:12] LABS: ABS Basophils 0.1 10^3/ul (0-0.2); ABS Eosinophils 0.3 10^3/ul (0-0.6); ABS Lymphocytes 3.1 10^3/ul (1.0-4.8); ABS Monocytes 0.4 10^3/ul (0-0.8); ABS Neutrophils 2.5 10^3/ul (1.5-7.7); ABS Nucleated RBC 0 10^3/ul; Eosinophil % 5.2 % (0-6); Hematocrit 36 % (35-47); Hemoglobin 12.1 g/dl (12.0-16.0); Lymphocyte % 47.9 % (25-47); Mean Corpuscular HGB Conc 34 g/dl (31-36); Mean Corpuscular Hemoglobin 30 pg (27-31); Mean Corpuscular Volume 88 fL (80-97); Mean Platelet Volume 10 um3 (7.4-10.4); Nucleated Red Blood Cells % 0.1; Platelet Count 152 10^3/ul (150-450); Red Cell Distribution Width 14 % (10.5-15); White Blood Count 6.5 10^3/ul (3.5-10.8)
[2017-06-05 04:28] LABS: EGFR Non-African American 92.8 (>60)
[2017-06-05 04:55] LABS: Urine Appearance Clear; Urine Blood Negative (Negative); Urine Color Yellow; Urine Ketones Negative (Negative); Urine Protein Negative (Negative); Urine Specific Gravity 1.018 (1.010-1.030); Urine Urobilinogen Negative (Negative)
[2017-06-05 05:10] VITALS: BP 109/59
--- NOTE | 2017-06-05 07:20 | ED ---
Don Hubbard Nilda, scribed for Елена Zhao MD on 06/05/17 at 0345 . GI/ HPI - HPI Summary HPI Summary: This patient is a 31 year old F presenting to [facility] with a chief complaint of intermittent lower abd pain and left pelvic pain for the past couple of months. The patient rates the throbbing pain 10/10 in severity. Symptoms aggravated and alleviated by nothing. Patient reports urinary frequency but denies vomiting , back pain, and vaginal discharge. LNMP 05/13/17. Pt denies daily medications. G /P/A: . PMHx miscarriage last year and left ovarian cyst. - History of Current Complaint Chief Complaint: EDAbdPain Time Seen by Provider: 06/05/17 03:24 Stated Complaint: ABD PAIN Hx Obtained From: Patient Hx Last Menstrual Period: 04/22/16 Onset/Duration: Started Weeks Ago, Still Present Timing: Intermittent Current Severity: Severe Pain Intensity: 10 Location of Pain: RLQ, LLQ, Other - Pelvic Pain Characteristics: Other: - throbbing Associated Signs and Symptoms: Positive: Other: - urinary frequency but denies vomiting, back pain, and vaginal discharge Aggravating Factor(s): Nothing Alleviating Factor(s): Nothing - Allergy/Home Medications Allergies/Adverse Reactions: Allergies Allergy/AdvReac Type Severity Reaction Status Date / Time tropical fruit Allergy Anaphylatic Uncoded 12/02/16 21:41 Shock PMH/Surg Hx/FS Hx/Imm Hx Endocrine/Hematology History: Denies: Hx Diabetes Cardiovascular History: Denies: Hx Hypercholesterolemia, Hx Hypertension Sensory History: Reports: Hx Contacts or Glasses - glasses Opthamlomology History: Reports: Hx Contacts or Glasses - glasses - Surgical History Surgery Procedure, Year, and Place: n/a Infectious Disease History: No Infectious Disease History: Denies: Traveled Outside the [place] in Last 30 Days - Family History Known Family History: Positive: Hypertension Negative: Cardiac Disease - Social History Alcohol Use: Occasionally Hx Substance Use: No Substance Use Type: Reports: None Hx Tobacco Use: No Smoking Status (MU): Never Smoked Tobacco Review of Systems Positive: Abdominal Pain - lower. Negative: Vomiting Positive: frequency, other - left pelvic pain. Negative: discharge Positive: Other - negative back pain All Other Systems Reviewed And Are Negative: Yes Physical Exam - Summary Physical Exam Summary: VITAL SIGNS: Reviewed. GENERAL: Patient is a well-developed and nourished female who is lying comfortable in the stretcher. Patient is not in any acute respiratory distress. HEAD AND FACE: No signs of trauma. No ecchymosis, hematomas or skull depressions. No sinus tenderness. EYES: PERRLA, EOMI x 2, No injected conjunctiva, no nystagmus. EARS: Hearing grossly intact. Ear canals and tympanic membranes are within normal limits. MOUTH: Oropharynx within normal limits. NECK: Supple, trachea is midline, no adenopathy, no JVD, no carotid bruit, no c- spine tenderness, neck with full ROM. CHEST: Symmetric, no tenderness at palpation LUNGS: Clear to auscultation bilaterally. No wheezing or crackles. CVS: Regular rate and rhythm, S1 and S2 present, no murmurs or gallops appreciated. ABDOMEN: Soft, non-tender. No signs of distention. No rebound no guarding, and no masses palpated. Bowel sounds are normal. PELVIS: Pelvic bilat tender, left inguinal area tender. Female nurse Kaylin S present during exam. EXTREMITIES: FROM in all major joints, no edema, no cyanosis or clubbing. NEURO: Alert and oriented x 3. No acute neurological deficits. Speech is normal and follows commands. SKIN: Dry and warm Triage Information Reviewed: Yes Vital Signs On Initial Exam: Initial Vitals Temp Pulse Resp BP Pulse Ox 98.9 F 65 16 137/51 100 06/05/17 00:19 06/05/17 00:19 06/05/17 00:19 06/05/17 00:19 06/05/17 00:19 Vital Signs Reviewed: Yes Diagnostics - Vital Signs Vital Signs Temp Pulse Resp BP Pulse Ox 06/05/17 01:56 98.5 F 64 18 109/53 99 06/05/17 00:19 98.9 F 65 16 137/51 100 - Laboratory Result Diagrams: 06/05/17 04:00 06/05/17 04:00 Lab Statement: Any lab studies that have been ordered have been reviewed, and results considered in the medical decision making process. Re-Evaluation - Re-Evaluation First Eval Re-Evaluation Time: 04:58 Comment: Pt feels better. GIGU Course/Dx - Course Assessment/Plan: Pt is a 31 y/o F with Hx of ovarian cyst and has had intermittent pelvic pain for months since having a miscarriage. Exam reveals pelvic tenderness. Labs were unremarkable. Pt feels better after being given toradol. Pt will be D/C with follow up to [facility] and pelvic US as outpatient. Motrin for pain. - Diagnoses Provider Diagnoses: Pelvic pain Discharge - Discharge Plan Condition: Stable Disposition: HOME Prescriptions: Ibuprofen TAB* [Motrin TAB* 600 MG] 600 mg PO Q6H PRN #30 tab PRN Reason: Pain Patient Education Materials: Pelvic Pain in Women (ED) Referrals: Margarita Wheat MD [Medical Doctor] - As Soon As Possible Erik Bee MD [Primary Care Provider] - 3 Days Additional Instructions: Follow up with [facility]. RETURN TO THE EMERGENCY DEPARTMENT FOR CHANGING OR WORSENING SYMPTOMS. The documentation as recorded by the Don hart Nilda accurately reflects the service I personally performed and the decisions made by me, Елена Zhao MD.
== END 2017-06-05 05:12 | disposition home or self-care (01) ==
LOC: ED 00:14
DX: R10.2 Pelvic and perineal pain (principal); R10.9 Unspecified abdominal pain
CPT/HCPCS: 36415; 80053; 81003; 84702; 85025; 86140; 96374; 99283; J1885

== ENCOUNTER 2017-09-20 22:32 | Emergency (ER) | payer OTHER ==
[2017-09-20] MEDS ORDERED: Ondansetron ODT TAB* 4 MG PO ONE (22:53)
[2017-09-20] MEDS ORDERED: NS 0.9% 1000 ML* 1,000 ML IV ONE (22:53)
--- NOTE | 2017-09-20 23:29 | ED ---
Nausea/Vomiting/Diarrhea HPI - HPI Summary HPI Summary: Patient complains of N/V 5 starting today, chills, weakness, KEITH, intermittent crampy umbilical abdominal pain starting at 3 PM today. Unable to hold down fluids or food. Denies fever, cough, sore throat, CP, SOB, change in urine or BM, vaginal symptoms. Medical history is asthma, ovarian cysts. Nonsmoker, occasional EtOH, denies recreational drugs. - History of Current Complaint Chief Complaint: EDNauseaVomitDiarrh Stated Complaint: NAUSEA/VOMITING Time Seen by Provider: 09/20/17 22:49 Hx Obtained From: Patient Hx Last Menstrual Period: 04/22/16 Onset/Duration: Sudden Onset Pain Intensity: 0 Location: Other Character: Cramping Aggravating Factor(s): Food Vomiting Frequency: Every 15-60 minutes Nausea/Vomiting Duration: 0-12 hours Vomiting Characteristics: Nonbilious Diarrhea Presence: No - Allergies/Home Medications Allergies/Adverse Reactions: Allergies Allergy/AdvReac Type Severity Reaction Status Date / Time tropical fruit Allergy Anaphylatic Uncoded 09/20/17 22:48 Shock Home Medications: Home Medications Cetirizine HCl 5 mg PO DAILY 09/20/17 [History Confirmed 09/20/17] PMH/Surg Hx/FS Hx/Imm Hx Endocrine/Hematology History: Denies: Hx Diabetes Cardiovascular History: Denies: Hx Cardiac Arrest, Hx Hypercholesterolemia, Hx Hypertension History: Denies: Hx Dialysis Musculoskeletal History: Denies: Hx Gout Sensory History: Reports: Hx Contacts or Glasses - glasses Opthamlomology History: Reports: Hx Contacts or Glasses - glasses EENT History: Denies: Hx Deafness Neurological History: Denies: Hx CVA - Surgical History Surgery Procedure, Year, and Place: n/a Infectious Disease History: No Infectious Disease History: Denies: Traveled Outside the [place] in Last 30 Days - Family History Known Family History: Positive: Hypertension Negative: Cardiac Disease - Social History Alcohol Use: Occasionally Hx Substance Use: No Substance Use Type: Reports: None Hx Tobacco Use: No Smoking Status (MU): Never Smoked Tobacco Review of Systems Positive: Chills Eyes: Negative ENT: Negative Cardiovascular: Negative Respiratory: Negative Positive: Abdominal Pain, Vomiting, Nausea Genitourinary: Negative Musculoskeletal: Negative Skin: Negative Positive: Headache Psychological: Normal All Other Systems Reviewed And Are Negative: Yes Physical Exam Triage Information Reviewed: Yes Vital Signs On Initial Exam: Initial Vitals Temp Pulse Resp BP Pulse Ox 99.7 F 85 16 131/65 99 09/20/17 22:45 09/20/17 22:45 09/20/17 22:45 09/20/17 22:45 09/20/17 22:45 Vital Signs Reviewed: Yes Appearance: Positive: Well-Appearing Skin: Positive: Warm Head/Face: Positive: Normal Head/Face Inspection Eyes: Positive: Normal Neck: Positive: Supple Respiratory/Lung Sounds: Positive: Clear to Auscultation Cardiovascular: Positive: Normal Abdomen Description: Positive: Nontender Musculoskeletal: Positive: Normal Neurological: Positive: Normal Psychiatric: Positive: Normal AVPU Assessment: Alert - [place] Coma Scale Best Eye Response: 4 - Spontaneous Best Motor Response: 6 - Obeys Commands Best Verbal Response: 5 - Oriented Coma Scale Total: 15 Diagnostics - Vital Signs Vital Signs Temp Pulse Resp BP Pulse Ox 09/20/17 22:45 99.7 F 85 16 131/65 99 - Laboratory Result Diagrams: 09/21/17 00:05 09/21/17 00:05 Lab Statement: Any lab studies that have been ordered have been reviewed, and results considered in the medical decision making process. Re-Evaluation - Re-Evaluation 1 Re-Evaluation Time: 00:42 Comment: Nausea mildly improved with Zofran, but patient states she continues to dry heave. 2 Re-Evaluation Time: 01:16 Comment: Nausea is improved with Phenergan 25 mg by mouth. Patient able to tolerate by mouth fluids. Naus/Vom/Diarrhea Course/Dx - Course Course Of Treatment: Patient complains of N/V 5 starting today, chills, weakness, KETIH, intermittent crampy umbilical abdominal pain starting at 3 PM today. Unable to hold down fluids or food. Denies fever, cough, sore throat, CP, SOB, change in urine or BM, vaginal symptoms. Medical history is asthma, ovarian cysts. Nonsmoker, occasional EtOH, denies recreational drugs. Patient symptoms controlled with Phenergan. Vital signs within normal limits. Labs unremarkable. Rx for Phenergan. Follow-up with primary care - Differential Dx/Diagnosis Provider Diagnoses: Nausea vomiting Discharge - Sign-Out/Discharge Documenting (check all that apply): Discharge/Admit/Transfer - Discharge Plan Condition: Stable Disposition: HOME Patient Education Materials: Acute Nausea and Vomiting (ED) Referrals: Erik Bee MD [Primary Care Provider] - Additional Instructions: Follow-up with primary care. Return to the ED for any new or worsening symptoms - Billing Disposition and Condition Condition: STABLE Disposition: Home
[2017-09-21 00:18] LABS: ABS Basophils 0 10^3/ul (0-0.2); ABS Eosinophils 0 10^3/ul (0-0.6); ABS Lymphocytes 0.6 10^3/ul (1.0-4.8); ABS Monocytes 0.3 10^3/ul (0-0.8); ABS Neutrophils 6.7 10^3/ul (1.5-7.7); ABS Nucleated RBC 0 10^3/ul; Eosinophil % 0.3 % (0-6); Hematocrit 38 % (35-47); Lymphocyte % 7.9 % (25-47); Mean Corpuscular HGB Conc 34 g/dl (31-36); Mean Corpuscular Hemoglobin 29 pg (27-31); Mean Corpuscular Volume 87 fL (80-97); Mean Platelet Volume 10.1 um3 (7.4-10.4); Nucleated Red Blood Cells % 0; Platelet Count 168 10^3/ul (150-450); Red Blood Count 4.41 10^6/ul (4.00-5.40); Red Cell Distribution Width 14 % (10.5-15); White Blood Count 7.7 10^3/ul (3.5-10.8)
[2017-09-21] MEDS ORDERED: Promethazine TAB* 25 MG PO ONE (00:26)
[2017-09-21 00:40] LABS: EGFR Non-African American 93.6 (>60)
[2017-09-21 02:14] VITALS: BP 114/69
== END 2017-09-21 02:14 | disposition home or self-care (01) ==
LOC: ED 22:32
DX: R11.2 Nausea with vomiting, unspecified (principal); J45.909 Unspecified asthma, uncomplicated
CPT/HCPCS: 36415; 80053; 84702; 85025; 99282; A9270-GY

== ENCOUNTER 2018-07-13 00:06 | Emergency (ER) | payer OTHER ==
[2018-07-13 00:54] LABS: Influenza A Molecular NEGATIVE (Negative); Influenza B Molecular NEGATIVE (Negative)
[2018-07-13] MEDS ORDERED: Oxymetazoline 0.05% NASAL SPR* 15 ML BTL BOTH NARES ONE (01:56)
--- NOTE | 2018-07-13 02:02 | ED ---
Throat Pain/Nasal Congestion - HPI Summary HPI Summary: 32-year-old female presents with sinus congestion and sore throat for the past couple hours. She states she feels like when she has strept so she took a dose of penicillin. She has taken penicillin before. States that she was having some shortness breath that has since resolved. She admits occasional cough. She does have a history of asthma. No wheezing. She states that she has been having worsening sinus congestion. - History of Current Complaint Chief Complaint: EDShortnessOfBreath Time Seen by Provider: 07/13/18 01:51 - Allergies/Home Medications Allergies/Adverse Reactions: Allergies Allergy/AdvReac Type Severity Reaction Status Date / Time tropical fruit Allergy Anaphylatic Uncoded 09/20/17 22:48 Shock PMH/Surg Hx/FS Hx/Imm Hx Endocrine/Hematology History: Denies: Hx Diabetes Cardiovascular History: Denies: Hx Cardiac Arrest, Hx Hypercholesterolemia, Hx Hypertension History: Denies: Hx Dialysis Musculoskeletal History: Denies: Hx Gout Sensory History: Reports: Hx Contacts or Glasses - glasses Denies: Hx Deafness Opthamlomology History: Reports: Hx Contacts or Glasses - glasses Neurological History: Denies: Hx CVA - Surgical History Surgery Procedure, Year, and Place: n/a Infectious Disease History: No Infectious Disease History: Denies: Traveled Outside the [place] in Last 30 Days - Family History Known Family History: Positive: Hypertension Negative: Cardiac Disease - Social History Alcohol Use: Occasionally Hx Substance Use: No Substance Use Type: Reports: None Hx Tobacco Use: No Smoking Status (MU): Never Smoked Tobacco Review of Systems Negative: Fever Positive: Sore Throat, Nasal Discharge Negative: Chest Pain Negative: Shortness Of Breath All Other Systems Reviewed And Are Negative: Yes Physical Exam Triage Information Reviewed: Yes Vital Signs On Initial Exam: Initial Vitals Temp Pulse Resp BP Pulse Ox 98.4 F 98 24 150/87 98 07/13/18 00:10 07/13/18 00:10 07/13/18 00:10 07/13/18 00:10 07/13/18 00:10 Vital Signs Reviewed: Yes Appearance: Positive: Well-Appearing Skin: Positive: Warm, Dry Head/Face: Positive: Normal Head/Face Inspection Eyes: Positive: Normal, EOMI, CARLO, Conjunctiva Clear ENT: Positive: Pharyngeal erythema, Nasal congestion, TMs normal, Uvula midline , Other - soft palate symmetric. Negative: Tonsillar swelling, Tonsillar exudate, Trismus, Muffled voice Respiratory/Lung Sounds: Positive: Clear to Auscultation, Breath Sounds Present Cardiovascular: Positive: Normal, RRR Abdomen Description: Positive: Nontender, Soft Bowel Sounds: Positive: Present Musculoskeletal: Positive: Normal Neurological: Positive: Normal Psychiatric: Positive: Normal Diagnostics - Vital Signs Vital Signs Temp Pulse Resp BP Pulse Ox 07/13/18 00:10 98.4 F 98 24 150/87 98 - Laboratory Lab Results: Lab Results 07/13/18 Range/Units 00:23 Influenza A (Rapid) Negative (Negative) Influenza B (Rapid) Negative (Negative) Lab Statement: Any lab studies that have been ordered have been reviewed, and results considered in the medical decision making process. EENT Course/Dx - Course Course Of Treatment: 32-year-old female presents with sinus congestion and sore throat for the past couple hours. She states she feels like when she has strept so she took a dose of penicillin. She has taken penicillin before. States that she was having some shortness breath that has since resolved. She admits occasional cough. She does have a history of asthma. No wheezing. She states that she has been having worsening sinus congestion. On exam sinus congestion notes. Pharynx erythema. Lungs clear to auscultation. Gave dosed Afrin. Flu negative. strept positive. We'll treat with amoxicillin. Patient understands and agrees with plan. - Differential Diagnoses Differential Diagnoses: Pharyngitis, Sinusitis, URI/Bronchitis - Diagnoses Provider Diagnoses: Streptococcal sore throat Discharge - Sign-Out/Discharge Documenting (check all that apply): Patient Departure Patient Received Moderate/Deep Sedation with Procedure: No - Discharge Plan Condition: Good Disposition: HOME Prescriptions: Amoxicillin PO (*) [Amoxicillin 500 MG CAP*] 500 mg PO Q12H #19 cap Patient Education Materials: Strep Throat (ED) Referrals: [facility] [Outside] Additional Instructions: Use saline spray in nose as much as needed take amoxicillin twice a day for 10 days use afrin twice a day for 2 days, do not use after two days Take Tylenol or ibuprofen for headache every 6 hours establish care with primary Return to ED if develop any new or worsening symptoms - Billing Disposition and Condition Condition: GOOD Disposition: Home
[2018-07-13 02:34] LABS: Rapid Strep Molecular POSITIVE (Negative)
[2018-07-13] MEDS ORDERED: Amoxicillin PO (*) 250 MG CAP PO ONE (02:35)
[2018-07-13 02:49] VITALS: BP 120/62
== END 2018-07-13 02:48 | disposition home or self-care (01) ==
LOC: ED 00:06
DX: J02.0 Streptococcal pharyngitis (principal)
CPT/HCPCS: 87651; 99283; A9270-GY

== ENCOUNTER 2019-01-13 18:49 | Emergency (ER) | payer OTHER ==
[2019-01-13] MEDS ORDERED: Ibuprofen TAB* 600 MG PO ONE (19:16)
--- NOTE | 2019-01-13 19:20 | ED ---
Throat Pain/Nasal Congestion - HPI Summary HPI Summary: Pt is a 33 y/o F presenting to the ED for a chief complaint of throat pain for the last 3-4 days. Pt tried taking Tylenol, Amoxicillin, hot fluids, and cold fluids without relief. Pt admits cough before the throat pain began. Pt denies fever, rhinorrhea, nausea, vomiting, diarrhea, or abdominal pain. Pt has a PMHx of strep throat. Pt admits her brother had influenza one week ago. Pt has a PMHx of a miscarriage 2 years ago, asthma, and ovarian cysts. Pt denies taking any medications. Pt denies alcohol, drug, or tobacco use. 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 Allergies noted. Medications reviewed. - History of Current Complaint Chief Complaint: EDThroatPain Time Seen by Provider: 01/13/19 19:02 Hx Obtained From: Patient Onset/Duration: Sudden Onset, Lasting Days - 3-4 days, Still Present Severity: Moderate Associated Signs And Symptoms: Positive: Negative Cough: Nonproductive - Allergies/Home Medications Allergies/Adverse Reactions: Allergies Allergy/AdvReac Type Severity Reaction Status Date / Time tropical fruit Allergy Anaphylatic Uncoded 01/13/19 18:52 Shock Home Medications: Home Medications NK [No Home Medications Reported] 01/13/19 [History Confirmed 01/13/19] PMH/Surg Hx/FS Hx/Imm Hx Previously Healthy: Yes Endocrine/Hematology History: Denies: Hx Diabetes Cardiovascular History: Denies: Hx Cardiac Arrest, Hx Hypercholesterolemia, Hx Hypertension History: Denies: Hx Dialysis Musculoskeletal History: Denies: Hx Gout Sensory History: Reports: Hx Contacts or Glasses - glasses Denies: Hx Legally Blind, Hx Deafness Opthamlomology History: Reports: Hx Contacts or Glasses - glasses Denies: Hx Legally Blind EENT History: Denies: Hx Deafness Neurological History: Denies: Hx CVA - Surgical History Surgical History: None Surgery Procedure, Year, and Place: n/a Infectious Disease History: No Infectious Disease History: Denies: Traveled Outside the [place] in Last 30 Days - Family History Known Family History: Positive: Hypertension Negative: Cardiac Disease - Social History Occupation: Employed Full-time, Student Lives: With Family Alcohol Use: Occasionally Hx Substance Use: No Substance Use Type: Reports: None Hx Tobacco Use: No Smoking Status (MU): Never Smoked Tobacco Review of Systems Negative: Fever Positive: Other - Positive throat pain. Negative: Nasal Discharge - Rhinorrhea Negative: Abdominal Pain, Vomiting, Diarrhea, Nausea All Other Systems Reviewed And Are Negative: Yes Physical Exam - Summary Physical Exam Summary: Constitutional: Well-developed, Well-nourished, Alert. (-) Distressed Skin: Warm, Dry HENT: Normocephalic; Atraumatic. Anterior cervical adenopathy, mild post pharyngeal erythema Eyes: Conjunctiva normal Neck: Musculoskeletal ROM normal neck. (-) JVD, (-) Stridor, (-) Tracheal deviation Cardio: Rhythm regular, rate normal, Heart sounds normal; Intact distal pulses; Radial pulses are 2+ and symmetric. (-) Murmur Pulmonary/Chest wall: Effort normal. (-) Respiratory distress, (-) Wheezes, (-) Rales Abd: Soft, (-) tenderness, (-) Distension, (-) Guarding, (-) Rebound Musculoskeletal: (-) Edema Lymph: (-) Cervical adenopathy Neuro: Alert, Oriented x3 Psych: Mood and affect Normal Triage Information Reviewed: Yes Vital Signs On Initial Exam: Initial Vitals Temp Pulse Resp BP Pulse Ox 99.4 F 74 16 108/76 99 01/13/19 18:51 01/13/19 18:51 01/13/19 18:51 01/13/19 18:51 01/13/19 18:51 Vital Signs Reviewed: Yes Procedures - Sedation Patient Received Moderate/Deep Sedation with Procedure: No Diagnostics - Vital Signs Vital Signs Temp Pulse Resp BP Pulse Ox 01/13/19 18:51 99.4 F 74 16 108/76 99 - Laboratory Lab Statement: Any lab studies that have been ordered have been reviewed, and results considered in the medical decision making process. EENT Course/Dx - Course Course Of Treatment: Patient is here with sore throat. Patient had anterior cervical lymphadenopathy and some pharyngeal erythema so a strep test was performed which is negative. Patient is suffering from viral pharyngitis. Patient has no evidence of deep space neck infection. Patient was educated on management of viral syndrome - Diagnoses Provider Diagnoses: Viral pharyngitis Discharge ED - Sign-Out/Discharge Documenting (check all that apply): Patient Departure - Discharge - Discharge Plan Condition: Stable Disposition: HOME Patient Education Materials: Pharyngitis (ED) Referrals: [facility] [Outside] Additional Instructions: Take Tylenol or ibuprofen for pain. Use a septic spray, lozenges, and tea with honey. You will start feeling better in 3-5 days. Return to the ED for any new or worsening symptoms. - Billing Disposition and Condition Condition: STABLE Disposition: Home - Attestation Statements Document Initiated by Scribe: Yes Documenting Scribe: Michaela Dalton Provider For Whom Scribe is Documenting (Include Credential): Dennis Stone MD Scribe Attestation: Michaela Hubbard, scribed for Dennis Stone MD on 01/15/19 at 1250. Scribe Documentation Reviewed: Yes Provider Attestation: The documentation as recorded by the Michaela hart accurately reflects the service I personally performed and the decisions made by Dennis carpenter MD Status of Scribe Document: Viewed
[2019-01-13 20:04] LABS: Rapid Strep Molecular Negative (Negative)
[2019-01-13 20:33] VITALS: BP 114/66
[2019-01-13 20:50] LABS: HIV 4th Generation Nonreactive (Nonreactive)
== END 2019-01-13 20:30 | disposition home or self-care (01) ==
LOC: ED 18:49
DX: J02.8 Acute pharyngitis due to other specified organisms (principal); B97.89 Other viral agents as the cause of diseases classified elsewhere
CPT/HCPCS: 36415; 87389; 87651; 99282; A9270-GY

== ENCOUNTER 2019-03-18 12:34 | Day surgery (SDC) | payer OTHER ==
[~2019-03-18 12:34] MED LIST: Buffered Lidocaine 1% SYRIN* 1 ML/SYRINGE INTRADERM ONE; Dexamethasone IV* 4 MG/ML 1 ML (4 MG) IV SLOW PU ONE; Famotidine IV* 10 MG/ML 2 ML (20 mg) IV ONE; Lactated Ringers 1000 ML Bag* 1,000 ML IV SCH
[2019-03-18] MEDS ORDERED: ROPIVACAINE 5 MG/ML 30 ML BTL (0.5%) ONE (12:57)
[2019-03-18] MEDS ORDERED: DiMENhydriNATE IV* 50 MG/ML VIAL IV PUSH PRN (14:00)
[2019-03-18] MEDS ORDERED: Naloxone* 0.4 MG/ML 1 ML VIAL IV PRN (14:00)
[2019-03-18] MEDS ORDERED: Ibuprofen TAB* 600 MG PO PRN (14:00)
[2019-03-18] MEDS ORDERED: oxyCODONE/Acetamin 5/325 MG* TAB PO PRN (14:00)
[2019-03-18] MEDS ORDERED: fentaNYL* 50 MCG/ML 2 ML VIAL (100 MCG VIAL) IV PRN (14:00)
[2019-03-18] MEDS ORDERED: HYDROcodone/ACETAMIN 5-325 MG* 1 TAB PO PRN (14:00)
[2019-03-18] MEDS ORDERED: Midazolam* 1 MG/ML 2 ML VIAL (2 MG) ONE (15:24)
[2019-03-18] MEDS ORDERED: Propofol* 10 MG/ML 20 ML BTL ONE (15:24)
[2019-03-18] MEDS ORDERED: fentaNYL* 50 MCG/ML 2 ML VIAL (100 MCG VIAL) ONE ×2 (15:24→16:57)
[2019-03-18] MEDS ORDERED: Succinylcholine* 20 MG/ML 10 ML VIAL ONE (15:24)
[2019-03-18] MEDS ORDERED: Ondansetron INJ* 2 MG/ML VIAL ONE (16:32)
[2019-03-18] MEDS ORDERED: oxyCODONE ORAL.SOLN* 5 MG/5 ML UDC ONE (17:25)
[2019-03-18 19:43] VITALS: BP 128/71
--- NOTE | 2019-03-18 23:03 | OP ---
OPERATIVE REPORT: DATE OF OPERATION: 03/18/19 - [facility] DATE OF : 89 ATTENDING SURGEON: Neftaly Ochoa MD CARD FOLDER: None. ANESTHESIOLOGIST: Maren Gupta MD ANESTHESIA: General. PRE-OP DIAGNOSIS: Chronic tonsillitis. POST-OP DIAGNOSIS: Chronic tonsillitis. OPERATIVE PROCEDURE: Tonsillectomy. ESTIMATED BLOOD LOSS: Negligible. SPECIMEN: Tonsils to Pathology. DESCRIPTION OF PROCEDURE: This is a 33-year-old woman with chronic tonsillitis. She was brought to the operating room on 03/18/19. The general anesthesia was induced and an oral endotracheal tube was placed. The table was turned, the patient was draped, and a time-out was performed. A McIvor mouth gag was used to facilitate exposure of the oropharynx and suspended from the Schuster stand. The right tonsil was grasped with a straight Allis forceps, retracted medially and dissected free off its fossa with the coblation device at a setting of 7 and 3 with minimal bleeding. The left tonsil was removed in an identical fashion again with minimal bleeding. Once the tonsils were out, the superior and inferior pole regions were prophylactically cauterized with the bipolar function on the device. The patient's stomach was then evacuated with an orogastric tube. The mouth gag was then let down for a period of minute. It was opened again. There was no evidence of active bleeding and the patient was returned to the care of the anesthesiologist, extubated, and delivered to the PACU. [id number]/[facility] #: [id number] MTDD
== END 2019-03-18 19:42 | disposition home or self-care (01) ==
LOC: OR 12:34
PROVIDERS: ATTEND Otolaryngology
DX: J03.01 Acute recurrent streptococcal tonsillitis (principal)
CPT/HCPCS: 81025; 88304; A9270-GY; J0330; J2250; J2405; J2704; J2795; J3010